=== PATIENT | female | born 2000 | race Caucasian/White ===

== ENCOUNTER 2022-11-29 12:24 | Emergency (ER) | payer SELFPAY ==
[~2022-11-29] VITALS: Ht 165.1 cm; Wt 100.0 kg
[2022-11-29 13:08] VITALS: BP 108/84
[2022-11-29 13:15] VITALS: BP 101/56
[2022-11-29 13:30] VITALS: BP 102/62
[2022-11-29 14:37] VITALS: BP 102/62
== END 2022-11-29 14:02 | disposition left against medical advice (07) | DRG 779 ==
LOC: ED 12:24 → AMA 13:20 → ED 13:20
DX: O03.6 Delayed or excessive hemorrhage following complete or unspecified spontaneous abortion (principal); R10.30 Lower abdominal pain, unspecified